=== PATIENT | female | born 1940 | race Caucasian/White ===

== ENCOUNTER 2018-03-22 08:53 | Day surgery (SDC) | payer MEDICARE, BC, MEDICAID ==
[~2018-03-22 08:53] MED LIST: BUPIVACAINE 0.5% (SDV) 30 ML, morphine SULFATE (PF) 8 MG, EPINEPHrine 0.3 MG, KETOROLAC... IRR; CEFAZOLIN 2 GM/50 ML (PMX) 50 ML IVPB; SOD CHLORIDE 0.9% 100 ML, TRANEXAMIC ACID 3,000 MG IRR; TRANEXAMIC ACID 1,000 MG in DEXTROSE 5% 100 ML IVPB
[2018-03-22] MEDS: GABAPENTIN 300 MG CAP PO ×2 (09:38)
[2018-03-22] MEDS: DEXAMETHASONE 1 MG TAB PO ×2 (09:38)
[2018-03-22] MEDS: traMADol 50 MG TAB PO ×2 (09:38)
[2018-03-22] MEDS ORDERED: LIDOCAINE 2% (SDV) 5 ML INJ ×2 (11:19)
[2018-03-22] MEDS ORDERED: PROPOFOL 20 ML ×2 (11:19)
[2018-03-22] MEDS ORDERED: MEPERIDINE 100 MG INJ ×2 (11:20)
[2018-03-22] MEDS ORDERED: THROMBIN 5000 UNIT VIAL ×2 (11:49)
[2018-03-22] MEDS ORDERED: CA CHLORIDE 10% 10 ML SYRINGE ×2 (11:49)
[2018-03-22] MEDS ORDERED: CEFAZOLIN 1 GM INJ ×2 (12:28)
[2018-03-22] MEDS ORDERED: OXYCODONE/ACETAMINOPHEN (5/325) TAB PO ×6 (13:00→13:30)
[2018-03-22] MEDS ORDERED: METOCLOPRAMIDE 10 MG INJ IV ×2 (13:00)
[2018-03-22] MEDS ORDERED: DIPHENHYDRAMINE 50 MG INJ IV ×4 (13:00→13:30)
[2018-03-22] MEDS ORDERED: LABETALOL HCL 20MG INJ IV ×2 (13:00)
[2018-03-22] MEDS ORDERED: MIDAZOLAM 1 MG/ML 2 ML INJ IV ×2 (13:00)
[2018-03-22] MEDS ORDERED: MEPERIDINE 25 MG INJ IV ×2 (13:00)
[2018-03-22] MEDS ORDERED: hydrALAzine 20 MG INJ IV ×2 (13:00)
[2018-03-22] MEDS ORDERED: HYDROmorphONE (0.2 MG/ML) 10ML SYG IV ×6 (13:00)
[2018-03-22] MEDS ORDERED: ONDANSETRON 4 MG INJ IV ×4 (13:00→13:30)
[2018-03-22] MEDS ORDERED: FENTAnyl 50 MCG/ML VIAL IV ×6 (13:00)
[2018-03-22] MEDS ORDERED: EPHEDrine SULFATE 50 MG/5 ML SYG IV ×2 (13:00)
[2018-03-22] MEDS ORDERED: ONDANSETRON 4 MG INJ ×2 (13:24)
[2018-03-22] MEDS ORDERED: METOCLOPRAMIDE 10 MG INJ ×2 (13:24)
[2018-03-22] MEDS ORDERED: ZOLPIDEM 5 MG TAB PO ×2 (13:30)
[2018-03-22] MEDS ORDERED: KETOROLAC 15 MG INJ IV ×2 (13:30)
[2018-03-22] MEDS ORDERED: morphine 2 MG INJ IV ×4 (13:30)
[2018-03-22] MEDS ORDERED: MAGNESIUM HYDROXIDE 30ML CUP PO ×2 (13:30)
[2018-03-22] MEDS ORDERED: ACETAMINOPHEN 500 MG TAB PO ×2 (13:30)
[2018-03-22] MEDS: TRANEXAMIC ACID 1,000 MG in DEXTROSE 5% 100 ML IV (14:40)
[2018-03-22] MEDS: POLYMYXIN/BACITRACIN 1L IRRIG ×2 (14:48)
[2018-03-22] MEDS: LACTATED RINGER'S 1,000 ML IV ×4 (15:32→23:25)
[2018-03-22] MEDS: CEFAZOLIN 1 GM/50 ML (PMX) 50 ML IVPB ×2 (16:26)
[2018-03-22] MEDS: DEXAMETHASONE 2 MG TAB PO ×2 (18:17)
[2018-03-22] MEDS: ATORVASTATIN 10 MG TAB PO ×2 (20:14)
[2018-03-22] MEDS: SENNA/DOCUSATE NA (8.6MG/50MG) TAB PO ×2 (20:14)
[2018-03-23] MEDS: DEXAMETHASONE 2 MG TAB PO ×4 (00:11→05:57)
[2018-03-23] MEDS: CEFAZOLIN 1 GM/50 ML (PMX) 50 ML IVPB ×4 (00:11→07:55)
[2018-03-23] MEDS: ASPIRIN 81 MG TAB PO ×2 (08:27)
[2018-03-23] MEDS: OXYCODONE/ACETAMINOPHEN (5/325) TAB PO ×2 (08:27)
[2018-03-23] MEDS: SENNA/DOCUSATE NA (8.6MG/50MG) TAB PO ×2 (08:27)
== END 2018-03-23 10:55 | disposition home or self-care (01) ==
LOC: REC 08:53 → MS1 14:54 → SDS 08:53 → MS1 14:54 → SDS 03-23 10:55
DX: M70.62 Trochanteric bursitis, left hip (principal); S76.212D Strain of adductor muscle, fascia and tendon of left thigh, subsequent encounter; X58.XXXD Exposure to other specified factors, subsequent encounter; G57.00 Lesion of sciatic nerve, unspecified lower limb
CPT/HCPCS: 20999; 72170; 86999; 97161